=== PATIENT | male | born 1950 | race Caucasian/White ===

== ENCOUNTER 2019-04-22 01:06 | Day surgery (SDC) | payer MEDICARE ==
[~2019-04-22] VITALS: Ht 180.3 cm; Wt 89.8 kg
[~2019-04-22 01:06] MED LIST: ASPI81TA94 PO; ATR80PT PO; CHOL100052 PO; HYDR-2966 PO; OMEG1CAP35 PO
[2019-04-22] MEDS ORDERED: LIDOCAINE/SOD BICARB 8.4% SYR ID ONE (07:25)
[2019-04-22] MEDS ORDERED: NORMOSOL R SOLN(*) 1000 ML BAG 1,000 ML IV PRN (07:25)
[2019-04-22 08:30] VITALS: BP 149/104
[2019-04-22 09:48] VITALS: BP 117/75
[2019-04-22] MEDS ORDERED: LIDOCAINE MPF 1% 5 ML VIAL ONE (09:56)
[2019-04-22] MEDS ORDERED: PROPOFOL EMUL(*) 10MG/ML 20 ML 40 ML ONE (09:56)
--- NOTE | 2019-04-22 09:58 | Short(Outpt) Discharge Summary ---
Discharge Summary Reason for Hosp/Final Diag: (1) Positive colorectal cancer screening using Cologuard test Status: Chronic Hospital Course & Plan: Colonoscopy completed without problems. Departure Discharge to: Home, Self Care Discharge Instructions Home Meds Reported Medications Cholecalciferol (Vitamin D3) (VITAMIN D) 1,000 Unit Tablet, 1000 UNIT PO 03/02/19 [place]-3/Dha/Epa/Fish Oil (FISH OIL 500 MG SOFTGEL) 1 Each Capsule, 1 EACH PO, CAPSULE 03/02/19 Aspirin (ASPIRIN) 81 Mg Tab.chew, 81 MG PO QDAY, TAB.CHEW 03/02/19 Atorvastatin (LIPITOR) 80 Mg Tab, 1 TAB PO QDAY, TAB 03/02/19 Hydrochlorothiazide (HYDROCHLOROTHIAZIDE) 25 Mg Tablet, 1 TAB PO QDAY, TAB 03/02/19 Diet: Regular Activity: As Tolerated Special Instructions: Your colonoscopy was completed without problems and your prep was excellent (Good Job!!). I didn't find any polyps or cancers. I recommend that your next colonoscopy be in 10 years. RAVI LAUREN MD Apr 22, 2019 09:58
[2019-04-22 10:13] VITALS: BP 142/78
[2019-04-22 10:26] VITALS: BP 151/83
[2019-04-22 10:27] VITALS: BP 162/84
== END 2019-04-22 10:45 | disposition home or self-care (01) ==
LOC: OR 01:06
PROVIDERS: ATTEND Surgery
DX: K57.30 Diverticulosis of large intestine without perforation or abscess without bleeding (principal)
CPT/HCPCS: 00811; 45378; J2001; J2704